=== PATIENT | female | born 1965 | race Caucasian/White ===

== ENCOUNTER 2019-09-21 15:25 | Inpatient (IN) | payer MEDICAID ==
[~2019-09-21] VITALS: Ht 157.5 cm; Wt 92.9 kg
[2019-09-21] MEDS ORDERED: normal saline 1000ML IV soln IVB ONE (15:45)
[2019-09-21 15:51] LABS: BASOPHILS # (AUTO) 0.1 X10'3 (0-0.2); BASOPHILS % (AUTO) 1.1 % (0-1); EOSINOPHILS # (AUTO) 0.1 X10'3 (0-0.9); EOSINOPHILS % (AUTO) 1.5 % (0-6); HEMATOCRIT 41.3 % (35.0-45.0); HEMOGLOBIN 13.3 g/dl (12.0-16.0); LYMPHOCYTES # (AUTO) 1.7 X10'3 (1.1-4.8); LYMPHOCYTES % (AUTO) 17.8 % (21-51); MEAN CORPUSCULAR HGB CONC 32.3 g/dL (33.0-36.5); MEAN CORPUSCULAR VOLUME 83.7 FL (78-98); MEAN PLATELET VOLUME 8.8 FL (7.4-10.4); MONOCYTES # (AUTO) 0.9 X10'3 (0-0.9); MONOCYTES % (AUTO) 9.8 % (2-12); NEUTROPHILS # (AUTO) 6.7 X10'3 (1.8-7.7); NEUTROPHILS % (AUTO) 69.8 % (42-75); PLATELET COUNT 202 X10'3 (140-440); RED BLOOD COUNT 4.93 X10'6 (4.20-5.60); RED CELL DISTRIBUTION WIDTH 20.2 % (11.5-14.5); WHITE BLOOD COUNT 9.6 X10'3 (4.5-11.0)
[2019-09-21 16:08] LABS: D-DIMER 1.24 MG/L FEU (0-0.50)
[2019-09-21 16:20] LABS: ANISOCYTOSIS 3+; ELLIPTOCYTES FEW; LARGE PLATELETS FEW; PLATELET ESTIMATE NORMAL
[2019-09-21 16:37] LABS: ALANINE AMINOTRANSFERASE 23 U/L (12-78); ALBUMIN 2.7 G/DL (3.4-5.0); ALBUMIN/GLOBULIN RATIO 0.6 (1.1-1.5); ALKALINE PHOSPHATASE 152 IU/L (46-116); ANION GAP 6 (8-16); ASPARTATE AMINO TRANSFERASE 30 U/L (10-37); BILIRUBIN,TOTAL 2.2 MG/DL (0.1-1.0); BLOOD UREA NITROGEN 15 MG/DL (7-18); BUN/CREATININE RATIO 16.9 (6.6-38.0); CALCIUM 8.4 MG/DL (8.5-10.1); CHLORIDE 102 MMOL/L (99-107); CREATININE 0.89 MG/DL (0.40-0.90); ETHANOL < 0.010 GM/DL (0.0-0.010); GLUCOSE 138 MG/DL (70-104); POTASSIUM 3.3 MMOL/L (3.5-5.1); SODIUM 141 MMOL/L (135-145); TOTAL CARBON DIOXIDE 33.3 MMOL/L (24-32); TOTAL PROTEIN 7.2 G/DL (6.4-8.2); eGFR 67 ML/MIN
[2019-09-21] MEDS ORDERED: iohexol 350MG/ML 100ml bottle IV ONE (16:56)
[2019-09-21] MEDS ORDERED: potassium Cl 20 mEq SR tablet PO STA (17:34)
[2019-09-21] MEDS ORDERED: FURO-150 PO (18:04)
[2019-09-21] MEDS ORDERED: ATOR40TA71 PO (18:10)
[2019-09-21] MEDS ORDERED: ALBU8HFA PO (18:12)
--- NOTE | 2019-09-21 18:12 | NUR ---
UPDATED PATIENTS HOME MEDS, PATIENT IS COMPLAINING OF CHEAST TIGHTNESS SO REPEAT EKG IS ORDERED, WILL CONTINUE TO MONITOR
--- NOTE | 2019-09-21 18:30 | NUR ---
Spoke to Dr. Cadet after assessing the patient who has a heart rate of 150 to auscultation and discharge orders. EKG and temperature repeated.
--- NOTE | 2019-09-21 18:47 | NUR ---
Desats quickly to mid 80's w/o O2
[2019-09-21] MEDS ORDERED: ondansetron/PF 4mg/2ml inj IV PRN (19:10)
[2019-09-21] MEDS ORDERED: acetaminophen 325mg tablet PO PRN (19:10)
[2019-09-21] MEDS ORDERED: potassium Cl 20mEq in NS 1,000 ML IV SCH (19:10)
[2019-09-21] MEDS ORDERED: HYDROcodone/acetaminophen 5mg/325mg tablet PO PRN (19:10)
[2019-09-21] MEDS ORDERED: magnesium hydroxide 30ml (MOM) UD suspension PO PRN (19:10)
[2019-09-21] MEDS ORDERED: magnesium 2GM in 50ml NS 50 ML IV PRN (19:10)
[2019-09-21] MEDS ORDERED: magnesium Cl slow-release 64mg tablet PO PRN (19:10)
[2019-09-21] MEDS ORDERED: potassium Cl 20 mEq SR tablet PO PRN ×2 (19:10)
[2019-09-21] MEDS ORDERED: potassium CL 10mEq/100ml bag 100 ML IV PRN ×2 (19:10)
[2019-09-21] MEDS ORDERED: morphine 2 MG/ML inj. syringe IV PRN (19:10)
[2019-09-21] MEDS ORDERED: magnesium 4gm in 100ml NS 100 ML IV PRN (19:10)
[2019-09-21] MEDS ORDERED: mag hydrox/Alum hydrox/simeth 30ml oral suspension PO PRN (19:10)
[2019-09-21] MEDS: K and/or MAG REPLACEMENT MC SCH (20:00)
--- NOTE | 2019-09-21 20:02 | NUR ---
Call out to Dr. Harrington regarding patient's persisting heart rate in the 150s. No answer at this time. Will attempt to contact her again shortly.
[2019-09-21 20:05] LABS: CLARITY,URINE CLEAR (Clear); COLOR,URINE YELLOW (Yellow); GLUCOSE, URINE NEGATIVE (Neg); KETONES,URINE NEGATIVE (Neg); LEUKOCYTE ESTERASE ,URINE NEGATIVE (Neg); NITRITES, URINE NEGATIVE (Neg); OCCULT BLOOD,URINE NEGATIVE (Neg); PH,URINE 6.5 (4.8-8.0); PROTEIN,URINE 30 mg/dl (Neg)
[2019-09-21 20:06] LABS: HEMOGLOBIN A1C 7.5 % (4.5-6.2)
--- NOTE | 2019-09-21 20:13 | NUR ---
Dorinda ortiz in EDM - 09/21/19 at 2013 by BONITA Spoke to Dr. Harrington about patient condition. 10mg IV labetalol IV once ordered.
[2019-09-21 20:14] LABS: UA COLLECTION TYPE CLN CATCH MIDSTREAM
[2019-09-21 20:14] LABS: TROPONIN I < 0.04 NG/ML (0.0-0.05)
--- NOTE | 2019-09-21 20:14 | NUR ---
Spoke to Dr. Harrington about patient condition. 10mg IV labetalol IV once ordered.
[2019-09-21] MEDS ORDERED: labetalol 20mg/4ml (5mg/ml) syringe IV ONE (20:15)
[2019-09-21 20:16] LABS: BACTERIA,URINE FEW /HPF (Neg); RBC,URINE NONE SEEN /HPF (0-2); SQUAMOUS EPITHELIAL CELL,UR MANY /LPF (FEW); URINE AMPHETAMINE SCREEN NEGATIVE (Neg); URINE BARBITUATE SCREEN NEGATIVE (Neg); URINE BENZODIAZEPINES SCREEN NEGATIVE (Neg); URINE CANNABINOID SCREEN NEGATIVE (Neg); URINE COCAINE SCREEN NEGATIVE (Neg); URINE METHADONE SCREEN NEGATIVE (Neg); URINE OPIATE SCREEN NEGATIVE (Neg); URINE PHENCYCLIDINE SCREEN NEGATIVE (Neg); WBC,URINE 0-4 /HPF (0-4)
--- NOTE | 2019-09-21 20:44 | NUR ---
3-5 minutes after giving labetalol IV as ordered, the patient began to feel dizzy and lightheaded. He heart rate dropped rapidly from 150 into the 80s. Her oxygen was increased to 15LPM and attempted to obtain an automated blood pressure unsuccessfully. Dr. Camarena called to bedside to evaluate the patient as she seemed to be deteriorating. Attempted to obtain a manual blood pressure but was unable to hear heart tones that way either. After Dr. Collins arrival to bedside the patient slowly improved without intervention and we obtained a blood pressure of 109/70. Dr. Camarena recommends stat echo. Spoke to Dr. Harrington who agrees with the stat echo and states we can give 500mL NS bolus to help with her blood pressure.
[2019-09-21] MEDS ORDERED: normal saline 500ml IV soln 1,000 ML IV ONE (21:00)
[2019-09-21 23:21] LABS: ABG BASE EXCESS -6.7 mmol/L (-2.0-3.0); ABG HCO3 16.1 mmol/L (22.0-26.0); ABG PCO2 (T) 25.9 mmHg (35.0-45.0); ALLEN'S TEST POSITIVE; FCOHb 1.1 % (0.5-1.5); FLOW 6 L/min; FMetHb 0.2 % (0.3-1.12); FO2Hb 95.7 % (94-100); PATIENT TEMPERATURE 36.7; TOTAL HEMOGLOBIN 15.2 G/dl (12.0-16.0)
[2019-09-22] VITALS (22 sets, daily range): BP systolic 84–129; BP diastolic 61–96
--- NOTE | 2019-09-22 00:50 | NUR ---
Patient in room CICU 2013. I have received report from REEL AND REWINDER OPERATOR and had the opportunity to ask questions and assume patient care. Pt ill appearing, diaphoretic, c/o being hot. Bilateral lower extremities cornelia to purple in color. 3+ pitting edema. Pt says color is normal appearing for her legs. Her toes and fingers as well as lips and nose are dusky. SpO2 pleth not reading. Can not currently obtain temperature, reading too low. Orders to place temp shukla and start Dobutamine for Low EF.
[2019-09-22] MEDS ORDERED: insulin Lispro (HumaLOG) vial - multi-dose SQ SCH (01:30)
[2019-09-22] MEDS ORDERED: MESSAGE TO PHARMACY PO ONE (01:30)
[2019-09-22] MEDS ORDERED: dextrose ORAL solution 15 GM/59 ML bottle PO PRN ×2 (01:30)
[2019-09-22] MEDS ORDERED: dextrose 50%-water 50ml dispensing syringe IV PRN (01:30)
[2019-09-22] MEDS ORDERED: glucagon, human recombinant 1mg kit SUBCUT PRN (01:30)
[2019-09-22] MEDS ORDERED: dextrose 50%-water 50ml dispensing syringe IV ONE (01:33)
[2019-09-22] MEDS: dextrose 50%-water 50ml dispensing syringe IV PRN ×2 (01:34→01:54)
[2019-09-22] MEDS: DOBUTamine-DoBUTrex 500mg/D5W 250 ML IV SCH (01:44)
[2019-09-22 02:06] LABS: BASOPHILS # (AUTO) 0.1 X10'3 (0-0.2); BASOPHILS % (AUTO) 0.5 % (0-1); EOSINOPHILS % (AUTO) 0.1 % (0-6); HEMATOCRIT 46.6 % (35.0-45.0); LYMPHOCYTES # (AUTO) 2.1 X10'3 (1.1-4.8); LYMPHOCYTES % (AUTO) 19.6 % (21-51); MEAN CORPUSCULAR HEMOGLOBIN 27.3 PG (27.0-31.0); MEAN CORPUSCULAR HGB CONC 32.2 g/dL (33.0-36.5); MEAN CORPUSCULAR VOLUME 84.9 FL (78-98); MEAN PLATELET VOLUME 9.1 FL (7.4-10.4); MONOCYTES # (AUTO) 0.7 X10'3 (0-0.9); MONOCYTES % (AUTO) 6.7 % (2-12); NEUTROPHILS # (AUTO) 7.7 X10'3 (1.8-7.7); NEUTROPHILS % (AUTO) 73.1 % (42-75); PLATELET COUNT 107 X10'3 (140-440); RED BLOOD COUNT 5.48 X10'6 (4.20-5.60); RED CELL DISTRIBUTION WIDTH 20.5 % (11.5-14.5); WHITE BLOOD COUNT 10.5 X10'3 (4.5-11.0)
[2019-09-22 02:28] LABS: ALANINE AMINOTRANSFERASE 28 U/L (12-78); ALBUMIN 3.1 G/DL (3.4-5.0); ALBUMIN/GLOBULIN RATIO 0.6 (1.1-1.5); ALKALINE PHOSPHATASE 173 IU/L (46-116); ANION GAP 16 (8-16); ASPARTATE AMINO TRANSFERASE 50 U/L (10-37); BILIRUBIN,TOTAL 3.6 MG/DL (0.1-1.0); BLOOD UREA NITROGEN 19 MG/DL (7-18); BUN/CREATININE RATIO 13.8 (6.6-38.0); CALCIUM 8.4 MG/DL (8.5-10.1); CHLORIDE 100 MMOL/L (99-107); CHOL/HDL RATIO 8.1 (0.00-4.99); CHOLESTEROL 145 MG/DL (0-200); CREATININE 1.38 MG/DL (0.40-0.90); HDL CHOLESTEROL 18 MG/DL (35-60); LDL CHOLESTEROL 128 MG/DL (50-100); MAGNESIUM 1.8 MG/DL (1.5-2.4); SODIUM 136 MMOL/L (135-145); TOTAL CARBON DIOXIDE 20.3 MMOL/L (24-32); TOTAL PROTEIN 7.9 G/DL (6.4-8.2); TRIGLYCERIDES 121 MG/DL (20-135); TROPONIN I < 0.04 NG/ML (0.0-0.05); eGFR 40 ML/MIN
[2019-09-22 02:32] LABS: GLUCOSE 38 MG/DL (70-104); POTASSIUM 6.3 MMOL/L (3.5-5.1)
[2019-09-22 02:35] LABS: ANISOCYTOSIS 3+; ELLIPTOCYTES FEW; PLATELET ESTIMATE DECREASED; POIKILOCYTOSIS FEW
[2019-09-22 02:36] LABS: ABG BASE EXCESS -13.2 mmol/L (-2.0-3.0); ABG HCO3 11.7 mmol/L (22.0-26.0); ABG OXYGEN SATURATION 98.1 % (95-98); ABG PO2 (T) 109.4 mmHg (83-108); ALLEN'S TEST POSITIVE; FCOHb 0.6 % (0.5-1.5); FLOW 15 L/min; FMetHb 0.3 % (0.3-1.12); FO2Hb 97.2 % (94-100); PATIENT TEMPERATURE 34.6; TOTAL HEMOGLOBIN 15.3 G/dl (12.0-16.0)
[2019-09-22] MEDS: normal saline 1000ml 1,000 ML IV SCH ×2 (03:05→12:48)
[2019-09-22] MEDS ORDERED: sodium bicarbonate (8.4%) inj. 1 MEQ/ML ML IV ONE (03:10)
[2019-09-22] MEDS ORDERED: sodium polystyrene sulfonate 15gm/60ml oral suspension PO ONE (03:10)
--- NOTE | 2019-09-22 03:17 | NUR ---
0125-Labs drawn and accucheck done off blood, BG 41. D Addendum: 09/22/19 at 0319 by Christy Pérez RN D50 given and repeat BG taken 0151 BG 61, additional amp D50 given IV. Pt now complaining of being too cold instead of too hot.
--- NOTE | 2019-09-22 03:19 | NUR ---
0220-Temp Shukla placed, less than 30ml dark yellow urine out. Pt feeling very "heavy" after shukla placed. Raised her head back to sitting position, pt very anxious, color is very poor. Called for Stat, ABG to get a SpO2 reading as monitor still not picking up reading. Pt placed on Salter instead of Non Rebreather I placed her on after sitting her up again. sO2 okay at 98, pleth still reading 50s. Saravanan hugger blanket in place. BG rechecked with arterial sample 249. Antwon Platt called and is back at bedside. Critical lab results and orders being placed.
--- NOTE | 2019-09-22 03:30 | NUR ---
Dobutamine reduced to 3mcg from 5mcg per C. Lc OUTREACH DIRECTOR, HR in 140's. Pt looks much more comfortable, color is normal.
[2019-09-22 04:04] LABS: PARTIAL THROMBOPLASTIN TIME 31 SECONDS (22-32)
--- NOTE | 2019-09-22 05:08 | NUR ---
0450- Pt now normal temperature, pleth reading correctly on finger. Pt had run of Vtach then HR slowed from 150's to 110's. Dobutamine remains at 3mcg.
--- NOTE | 2019-09-22 06:41 | NUR ---
Problems reprioritized. Patient report given, questions answered & plan of care reviewed with Kehinde DAVIDSON.
--- NOTE | 2019-09-22 07:24 | NUR ---
notified Dr. Castillo pt's dobutamine gtt held; BP stable with HR in the high 150s for 30mins. Orders received.
[2019-09-22] MEDS ORDERED: diltiazem 30mg tablet PO ONE (07:25)
[2019-09-22] MEDS: enoxaparin 40mg/0.4ml syringe SUBCUT SCH (08:00)
[2019-09-22] MEDS: K and/or MAG REPLACEMENT MC SCH ×2 (08:00→19:08)
[2019-09-22] MEDS ORDERED: metoprolol tartrate 1mg/ml inj IV ONE ×2 (10:30→12:00)
--- NOTE | 2019-09-22 10:30 | NUR ---
notified Dr Castillo of pt's decreased urine output; no new orders received. aware of pt's continued HR in the 130s/140s.
[2019-09-22] MEDS: diltiazem 30mg tablet PO SCH ×3 (13:55→23:29)
[2019-09-22] MEDS ORDERED: TIOT4MIS5 INH (16:22)
--- NOTE | 2019-09-22 16:47 | NUR ---
DM consult, A1c is 7.5, patient met at bedside and given written DM education handout with verbal review and referral to outpatient DM education class on wednesday with contact information (currently on hold). Addendum: 09/22/19 at [address] Amended: Links added.
--- NOTE | 2019-09-22 18:25 | NUR ---
Patient in room CICU 2013. I have received report from STUART Anadn and had the opportunity to ask questions and assume patient care.
--- NOTE | 2019-09-22 18:35 | NUR ---
Patient report given, questions answered & plan of care reviewed with Wilma DAVIDSON.
[2019-09-22] MEDS: insulin glargine (Lantus) pen - multi-dose SQ SCH (19:06)
--- NOTE | 2019-09-22 21:09 | NUR ---
Spoke with Antwon Platt NP re: non-administration of Diltiazem secondary to BP 84/61 ( 68). No new orders. Addressed patient remains on NS at 100 ml/hr with a PO fluid restriction of 1500 ml. Order to D/C IV fluids. Antwon Platt BULL RIVETER aware of Patients decreased urine output of 20-30 ml/hr. Will continue to monitor. Patient c/o "severe anxiety" at nighttime while in the hospital. Order for 1 mg Ativan PO or IV every 6 hours PM only for anxiety.
[2019-09-22] MEDS ORDERED: LORazepam 2 mg/ml vial IV PRN (21:15)
[2019-09-22] MEDS: LORazepam 1 MG tablet PO PRN (21:58)
--- NOTE | 2019-09-22 23:00 | NUR ---
Patients SpO2 reading in the 70's - low 80's despite moving location of the oxygen probe. Patient placed on 10 lpm Salter. RT paged. ABG ordered.
[2019-09-22 23:16] LABS: ABG BASE EXCESS -2.3 mmol/L (-2.0-3.0); ABG HCO3 20.7 mmol/L (22.0-26.0); ABG OXYGEN SATURATION 98.5 % (95-98); ABG PCO2 (T) 30.8 mmHg (35.0-45.0); ABG PH (T) 7.445 (7.350-7.450); ABG PO2 (T) 123.4 mmHg (83-108); ALLEN'S TEST POSITIVE; FCOHb 0.5 % (0.5-1.5); FMetHb 0.2 % (0.3-1.12); FO2Hb 97.8 % (94-100); PATIENT TEMPERATURE 37.1; TOTAL HEMOGLOBIN 14.4 G/dl (12.0-16.0)
--- NOTE | 2019-09-22 23:24 | NUR ---
Antwon Platt NP called, heart rate 145. Order to give 0200 dose of Cardizem now.
[2019-09-23] VITALS (25 sets, daily range): BP systolic 92–152; BP diastolic 61–110
[2019-09-23 03:45] LABS: ALANINE AMINOTRANSFERASE 72 U/L (12-78); ALBUMIN 2.7 G/DL (3.4-5.0); ALBUMIN/GLOBULIN RATIO 0.6 (1.1-1.5); ALKALINE PHOSPHATASE 137 IU/L (46-116); ANION GAP 10 (8-16); ASPARTATE AMINO TRANSFERASE 110 U/L (10-37); BILIRUBIN,TOTAL 3.2 MG/DL (0.1-1.0); BLOOD UREA NITROGEN 27 MG/DL (7-18); BUN/CREATININE RATIO 22.3 (6.6-38.0); CHLORIDE 101 MMOL/L (99-107); CREATININE 1.21 MG/DL (0.40-0.90); GLUCOSE 75 MG/DL (70-104); MAGNESIUM 1.9 MG/DL (1.5-2.4); POTASSIUM 4.3 MMOL/L (3.5-5.1); SODIUM 135 MMOL/L (135-145); TOTAL CARBON DIOXIDE 24.1 MMOL/L (24-32); TOTAL PROTEIN 6.9 G/DL (6.4-8.2); eGFR 47 ML/MIN
--- NOTE | 2019-09-23 03:45 | NUR ---
Patient awoke agitated demanding she "sit in a chair". Patient educated on severity of illness and advised that sitting in a chair would not be possible at this time. Patient continued to demand that she sit in a chair, kicking off blankets and pillows. Patient demanded that SCD's be removed. primer waterproofing machine operator notified and came to bedside. Education given on illness and plan of care. Patient non- compliant with instructions. Patient moving legs to edge of bed. Allowed patient to sit on edge of bed with RN in attendance. Patient tolerated position change for 1 minute, increase work of breathing, decreased oxygen saturation to the 70's. Patient assisted back to bed. Patient continues to refuse SCD's. C/O anxiety, Ativan administered per order.
[2019-09-23] MEDS: LORazepam 1 MG tablet PO PRN ×2 (03:58→22:46)
[2019-09-23 05:26] LABS: BASOPHILS # (AUTO) 0.1 X10'3 (0-0.2); BASOPHILS % (AUTO) 0.8 % (0-1); EOSINOPHILS # (AUTO) 0.1 X10'3 (0-0.9); EOSINOPHILS % (AUTO) 0.7 % (0-6); HEMATOCRIT 45.9 % (35.0-45.0); HEMOGLOBIN 14.6 g/dl (12.0-16.0); LYMPHOCYTES # (AUTO) 2.8 X10'3 (1.1-4.8); LYMPHOCYTES % (AUTO) 21.3 % (21-51); MEAN CORPUSCULAR HEMOGLOBIN 26.9 PG (27.0-31.0); MEAN CORPUSCULAR HGB CONC 31.8 g/dL (33.0-36.5); MEAN CORPUSCULAR VOLUME 84.4 FL (78-98); MEAN PLATELET VOLUME 9.1 FL (7.4-10.4); MONOCYTES # (AUTO) 1.6 X10'3 (0-0.9); MONOCYTES % (AUTO) 12.1 % (2-12); NEUTROPHILS # (AUTO) 8.6 X10'3 (1.8-7.7); NEUTROPHILS % (AUTO) 65.1 % (42-75); PLATELET COUNT 141 X10'3 (140-440); RED BLOOD COUNT 5.44 X10'6 (4.20-5.60); RED CELL DISTRIBUTION WIDTH 20.9 % (11.5-14.5); WHITE BLOOD COUNT 13.2 X10'3 (4.5-11.0)
--- NOTE | 2019-09-23 06:17 | NUR ---
Problems reprioritized. Patient report given, questions answered & plan of care reviewed with STUART Galarza.
[2019-09-23] MEDS: enoxaparin 40mg/0.4ml syringe SUBCUT SCH (07:40)
[2019-09-23] MEDS: diltiazem 30mg tablet PO SCH ×3 (07:40→20:34)
[2019-09-23] MEDS: K and/or MAG REPLACEMENT MC SCH ×2 (08:00→20:00)
--- NOTE | 2019-09-23 18:20 | NUR ---
Patient in room CICU 2013. I have received report from Geovanni DAVIDSON and had the opportunity to ask questions and assume patient care.
[2019-09-23] MEDS: insulin glargine (Lantus) pen - multi-dose SQ SCH (20:33)
[2019-09-24] VITALS (24 sets, daily range): BP systolic 101–151; BP diastolic 74–105
[2019-09-24] MEDS: DOBUTamine-DoBUTrex 500mg/D5W 250 ML IV SCH (01:10)
[2019-09-24] MEDS: diltiazem 30mg tablet PO SCH ×4 (02:13→20:04)
--- NOTE | 2019-09-24 06:47 | NUR ---
Problems reprioritized. Patient report given, questions answered & plan of care reviewed with Heidi DAVIDSON.
--- NOTE | 2019-09-24 07:25 | NUR ---
Patient in room CICU 2013. I have received report from STUART Delgado and had the opportunity to ask questions and assume patient care.
[2019-09-24] MEDS: enoxaparin 40mg/0.4ml syringe SUBCUT SCH (08:20)
[2019-09-24] MEDS ORDERED: albuterol 2.5 MG/3 ML nebule NEB PRN (10:20)
[2019-09-24] MEDS: ipratropium 0.5 MG/2.5ML nebule IH SCH ×3 (10:30→20:05)
[2019-09-24] MEDS: K and/or MAG REPLACEMENT MC SCH ×2 (11:00→18:59)
[2019-09-24 11:44] LABS: BASOPHILS # (AUTO) 0.1 X10'3 (0-0.2); HEMOGLOBIN 13.9 g/dl (12.0-16.0); MONOCYTES # (AUTO) 1.1 X10'3 (0-0.9)
[2019-09-24 11:46] LABS: BASOPHILS % (AUTO) 1.3 % (0-1); EOSINOPHILS # (AUTO) 0.3 X10'3 (0-0.9); EOSINOPHILS % (AUTO) 2.7 % (0-6); HEMATOCRIT 43.3 % (35.0-45.0); LYMPHOCYTES # (AUTO) 1.7 X10'3 (1.1-4.8); MEAN CORPUSCULAR HEMOGLOBIN 26.9 PG (27.0-31.0); MEAN PLATELET VOLUME 9.1 FL (7.4-10.4); MONOCYTES % (AUTO) 10.2 % (2-12); NEUTROPHILS # (AUTO) 7.2 X10'3 (1.8-7.7); NEUTROPHILS % (AUTO) 69.8 % (42-75); PLATELET COUNT 168 X10'3 (140-440); RED BLOOD COUNT 5.16 X10'6 (4.20-5.60); RED CELL DISTRIBUTION WIDTH 20.4 % (11.5-14.5); WHITE BLOOD COUNT 10.4 X10'3 (4.5-11.0)
[2019-09-24 12:02] LABS: ALANINE AMINOTRANSFERASE 100 U/L (12-78); ALBUMIN 2.7 G/DL (3.4-5.0); ALBUMIN/GLOBULIN RATIO 0.6 (1.1-1.5); ALKALINE PHOSPHATASE 142 IU/L (46-116); ANION GAP 4 (8-16); ASPARTATE AMINO TRANSFERASE 100 U/L (10-37); BILIRUBIN,TOTAL 2.5 MG/DL (0.1-1.0); BLOOD UREA NITROGEN 27 MG/DL (7-18); BUN/CREATININE RATIO 25.5 (6.6-38.0); CALCIUM 8.6 MG/DL (8.5-10.1); CHLORIDE 101 MMOL/L (99-107); CREATININE 1.06 MG/DL (0.40-0.90); GLUCOSE 132 MG/DL (70-104); MAGNESIUM 2.1 MG/DL (1.5-2.4); SODIUM 135 MMOL/L (135-145); TOTAL CARBON DIOXIDE 30.4 MMOL/L (24-32); eGFR 54 ML/MIN
[2019-09-24 12:07] LABS: POTASSIUM 3.7 MMOL/L (3.5-5.1)
[2019-09-24 12:27] LABS: ANISOCYTOSIS 3+; ELLIPTOCYTES FEW; PLATELET ESTIMATE NORMAL; POLYCHROMASIA 1+; TARGET CELLS FEW
[2019-09-24 12:28] LABS: BURR CELLS FEW
--- NOTE | 2019-09-24 18:28 | NUR ---
Problems reprioritized. Patient report given, questions answered & plan of care reviewed with STUART Turner.
--- NOTE | 2019-09-24 18:36 | NUR ---
Patient in room CICU 2013. I have received report from Clarisa DAVIDSON and had the opportunity to ask questions and assume patient care.
[2019-09-24] MEDS: atorvastatin 20mg tablet PO SCH (20:04)
[2019-09-24] MEDS: insulin glargine (Lantus) pen - multi-dose SQ SCH (21:00)
[2019-09-24] MEDS: LORazepam 1 MG tablet PO PRN (21:07)
[2019-09-25] VITALS (16 sets, daily range): BP systolic 97–138; BP diastolic 61–98
[2019-09-25] MEDS: guaiFENesin 200 MG/10 ML oral syrup UD cup PO PRN ×2 (02:09→16:15)
[2019-09-25] MEDS: diltiazem 30mg tablet PO SCH ×4 (02:09→20:59)
[2019-09-25] MEDS: ipratropium 0.5 MG/2.5ML nebule IH SCH ×4 (03:00→20:18)
--- NOTE | 2019-09-25 06:22 | NUR ---
Problems reprioritized. Patient report given, questions answered & plan of care reviewed with Clarisa DAVIDSON.
--- NOTE | 2019-09-25 06:29 | NUR ---
Patient in room CICU 2013. I have received report from STUART RINALDI and had the opportunity to ask questions and assume patient care.
[2019-09-25] MEDS: K and/or MAG REPLACEMENT MC SCH ×2 (08:00→19:24)
[2019-09-25 08:27] LABS: BASOPHILS # (AUTO) 0.1 X10'3 (0-0.2); EOSINOPHILS # (AUTO) 0.2 X10'3 (0-0.9); EOSINOPHILS % (AUTO) 2.1 % (0-6); HEMATOCRIT 42.3 % (35.0-45.0); HEMOGLOBIN 13.6 g/dl (12.0-16.0); LYMPHOCYTES # (AUTO) 1.8 X10'3 (1.1-4.8); LYMPHOCYTES % (AUTO) 17.2 % (21-51); MEAN CORPUSCULAR HEMOGLOBIN 26.8 PG (27.0-31.0); MEAN CORPUSCULAR HGB CONC 32.3 g/dL (33.0-36.5); MONOCYTES % (AUTO) 9.9 % (2-12); NEUTROPHILS # (AUTO) 7.2 X10'3 (1.8-7.7); NEUTROPHILS % (AUTO) 69.8 % (42-75); PLATELET COUNT 173 X10'3 (140-440); RED CELL DISTRIBUTION WIDTH 20.6 % (11.5-14.5); WHITE BLOOD COUNT 10.3 X10'3 (4.5-11.0)
[2019-09-25] MEDS: enoxaparin 40mg/0.4ml syringe SUBCUT SCH (08:39)
[2019-09-25 08:41] LABS: ALANINE AMINOTRANSFERASE 95 U/L (12-78); ALBUMIN 2.8 G/DL (3.4-5.0); ALBUMIN/GLOBULIN RATIO 0.7 (1.1-1.5); ALKALINE PHOSPHATASE 157 IU/L (46-116); ANION GAP 7 (8-16); ASPARTATE AMINO TRANSFERASE 101 U/L (10-37); BLOOD UREA NITROGEN 21 MG/DL (7-18); BUN/CREATININE RATIO 41.2 (6.6-38.0); CALCIUM 8.6 MG/DL (8.5-10.1); CHLORIDE 101 MMOL/L (99-107); CREATININE 0.51 MG/DL (0.40-0.90); GLUCOSE 76 MG/DL (70-104); MAGNESIUM 2.1 MG/DL (1.5-2.4); POTASSIUM 4.4 MMOL/L (3.5-5.1); SODIUM 135 MMOL/L (135-145); TOTAL CARBON DIOXIDE 26.7 MMOL/L (24-32); TOTAL PROTEIN 7.1 G/DL (6.4-8.2); eGFR > 90 ML/MIN
[2019-09-25 09:35] LABS: ANISOCYTOSIS 3+; HYPOCHROMASIA 1+; PLATELET ESTIMATE NORMAL
[2019-09-25 09:36] LABS: POLYCHROMASIA FEW
--- NOTE | 2019-09-25 14:45 | NUR ---
PT TRANSFERRED WITH ALL BELONGING TO pcu,ROOM 3024B IN CARE OF SAME RN
--- NOTE | 2019-09-25 18:42 | NUR ---
Problems reprioritized. Patient report given, questions answered & plan of care reviewed with joyce ayon.
--- NOTE | 2019-09-25 18:46 | NUR ---
Patient in room PCU 3024. I have received report from Clarisa DAVIDSON and had the opportunity to ask questions and assume patient care.
--- NOTE | 2019-09-25 19:24 | NUR ---
Problems reprioritized. Patient report given, questions answered & plan of care reviewed with Lisa DAVIDSON.
[2019-09-25] MEDS: insulin glargine (Lantus) pen - multi-dose SQ SCH (21:00)
[2019-09-25] MEDS: atorvastatin 20mg tablet PO SCH (21:00)
[2019-09-25] MEDS: LORazepam 1 MG tablet PO PRN (21:28)
[2019-09-26] VITALS (8 sets, daily range): BP systolic 90–148; BP diastolic 56–95
[2019-09-26] MEDS: guaiFENesin 200 MG/10 ML oral syrup UD cup PO PRN ×2 (02:07→22:40)
[2019-09-26] MEDS: diltiazem 30mg tablet PO SCH ×2 (02:07→08:00)
[2019-09-26] MEDS: ipratropium 0.5 MG/2.5ML nebule IH SCH ×4 (02:21→20:38)
--- NOTE | 2019-09-26 05:03 | NUR ---
REDD Salgado notified r/t pt increased anxiety, pt order stated ativan 1 mg PO/IV for PM shift. Killian Caldwell ativan dose now at 0500. will monitor for sedation. 2. no IV access. pt refuse IV despite multiple eduction regarding IV access.
[2019-09-26] MEDS: LORazepam 1 MG tablet PO PRN ×2 (05:08→22:40)
--- NOTE | 2019-09-26 06:37 | NUR ---
Problems reprioritized. Patient report given, questions answered & plan of care reviewed with Rossana DAVIDSON.
[2019-09-26 06:39] LABS: BASOPHILS # (AUTO) 0.1 X10'3 (0-0.2); BASOPHILS % (AUTO) 0.7 % (0-1); EOSINOPHILS # (AUTO) 0.2 X10'3 (0-0.9); HEMATOCRIT 42.3 % (35.0-45.0); HEMOGLOBIN 13.7 g/dl (12.0-16.0); LYMPHOCYTES # (AUTO) 1.8 X10'3 (1.1-4.8); LYMPHOCYTES % (AUTO) 18.5 % (21-51); MEAN CORPUSCULAR HGB CONC 32.3 g/dL (33.0-36.5); MEAN CORPUSCULAR VOLUME 83.5 FL (78-98); MEAN PLATELET VOLUME 9.3 FL (7.4-10.4); MONOCYTES # (AUTO) 1.2 X10'3 (0-0.9); MONOCYTES % (AUTO) 11.9 % (2-12); NEUTROPHILS # (AUTO) 6.5 X10'3 (1.8-7.7); NEUTROPHILS % (AUTO) 66.9 % (42-75); PLATELET COUNT 204 X10'3 (140-440); RED BLOOD COUNT 5.07 X10'6 (4.20-5.60); RED CELL DISTRIBUTION WIDTH 20.8 % (11.5-14.5); WHITE BLOOD COUNT 9.8 X10'3 (4.5-11.0)
[2019-09-26 06:54] LABS: ALANINE AMINOTRANSFERASE 78 U/L (12-78); ALBUMIN 2.7 G/DL (3.4-5.0); ALBUMIN/GLOBULIN RATIO 0.6 (1.1-1.5); ALKALINE PHOSPHATASE 163 IU/L (46-116); ANION GAP 7 (8-16); ASPARTATE AMINO TRANSFERASE 67 U/L (10-37); BILIRUBIN,TOTAL 2.6 MG/DL (0.1-1.0); BLOOD UREA NITROGEN 18 MG/DL (7-18); BUN/CREATININE RATIO 18.4 (6.6-38.0); CALCIUM 8.3 MG/DL (8.5-10.1); CHLORIDE 101 MMOL/L (99-107); CREATININE 0.98 MG/DL (0.40-0.90); GLUCOSE 83 MG/DL (70-104); POTASSIUM 3.7 MMOL/L (3.5-5.1); SODIUM 137 MMOL/L (135-145); TOTAL CARBON DIOXIDE 29.3 MMOL/L (24-32); eGFR 60 ML/MIN
--- NOTE | 2019-09-26 06:55 | NUR ---
Patient in room PCU 3022G. I have received report from Lisa DAVIDSON and had the opportunity to ask questions and assume patient care. Patient laying in bed, eyes closed, no signs of distress, will continue to monitor.
[2019-09-26] MEDS: enoxaparin 40mg/0.4ml syringe SUBCUT SCH (08:00)
[2019-09-26] MEDS: K and/or MAG REPLACEMENT MC SCH ×2 (08:00→20:41)
[2019-09-26 09:15] LABS: ANISOCYTOSIS 3+; PLATELET ESTIMATE NORMAL
[2019-09-26] MEDS: losartan 50mg tablet PO SCH (10:35)
--- NOTE | 2019-09-26 12:25 | NUR ---
Initial: Pt admit s/p seizure, tachycardia currently controlled, and metabolic acidosis possibly r/t seizure per MD. PO 50-75% avg heart healthy diet w/ PO continuing to improve this admit. Pt currently meeting needs given adjusted IBW w/ morbid obesity BMI 38. LBM 09/24 moderate but also first BM in 4 days. Will continue to monitor for additional protein needs pending further PO hx. Rec: 1. continue heart healthy diet 2. monitor for additional protein needs pending further PO hx 3. bowel care as needed 4. wt per rx Addendum: 09/26/19 at [address] Amended: Links added.
--- NOTE | 2019-09-26 18:26 | NUR ---
Problems reprioritized. Patient report given, questions answered & plan of care reviewed with Enrrique DAVIDSON.
[2019-09-26] MEDS: carVEDilol 3.125mg tablet PO SCH (20:28)
[2019-09-26] MEDS: atorvastatin 20mg tablet PO SCH (20:28)
[2019-09-26] MEDS: insulin glargine (Lantus) pen - multi-dose SQ SCH (20:41)
[2019-09-27] VITALS (9 sets, daily range): BP systolic 77–124; BP diastolic 56–93
[2019-09-27] MEDS: ipratropium 0.5 MG/2.5ML nebule IH SCH ×4 (01:45→20:13)
[2019-09-27 06:26] LABS: EOSINOPHILS # (AUTO) 0.2 X10'3 (0-0.9); MEAN PLATELET VOLUME 9.3 FL (7.4-10.4); RED BLOOD COUNT 4.96 X10'6 (4.20-5.60)
[2019-09-27 06:29] LABS: BASOPHILS # (AUTO) 0.1 X10'3 (0-0.2); BASOPHILS % (AUTO) 0.6 % (0-1); HEMATOCRIT 40.9 % (35.0-45.0); HEMOGLOBIN 13.3 g/dl (12.0-16.0); LYMPHOCYTES # (AUTO) 1.4 X10'3 (1.1-4.8); LYMPHOCYTES % (AUTO) 16.6 % (21-51); MEAN CORPUSCULAR HEMOGLOBIN 26.8 PG (27.0-31.0); MEAN CORPUSCULAR HGB CONC 32.5 g/dL (33.0-36.5); MEAN CORPUSCULAR VOLUME 82.5 FL (78-98); MONOCYTES % (AUTO) 12.4 % (2-12); NEUTROPHILS # (AUTO) 5.7 X10'3 (1.8-7.7); NEUTROPHILS % (AUTO) 68.4 % (42-75); PLATELET COUNT 208 X10'3 (140-440); WHITE BLOOD COUNT 8.3 X10'3 (4.5-11.0)
--- NOTE | 2019-09-27 06:32 | NUR ---
Patient in room U 3028Q. I have received report from Enrrique DAVIDSON and had the opportunity to ask questions and assume patient care.
[2019-09-27 06:33] LABS: ALANINE AMINOTRANSFERASE 56 U/L (12-78); ALBUMIN 2.4 G/DL (3.4-5.0); ALBUMIN/GLOBULIN RATIO 0.6 (1.1-1.5); ALKALINE PHOSPHATASE 148 IU/L (46-116); ANION GAP 6 (8-16); ASPARTATE AMINO TRANSFERASE 49 U/L (10-37); BILIRUBIN,TOTAL 2.3 MG/DL (0.1-1.0); BLOOD UREA NITROGEN 20 MG/DL (7-18); BUN/CREATININE RATIO 20.6 (6.6-38.0); CALCIUM 8.4 MG/DL (8.5-10.1); CHLORIDE 104 MMOL/L (99-107); CREATININE 0.97 MG/DL (0.40-0.90); GLUCOSE 79 MG/DL (70-104); MAGNESIUM 2.1 MG/DL (1.5-2.4); POTASSIUM 4.2 MMOL/L (3.5-5.1); SODIUM 140 MMOL/L (135-145); TOTAL CARBON DIOXIDE 29.6 MMOL/L (24-32); TOTAL PROTEIN 6.4 G/DL (6.4-8.2); eGFR 60 ML/MIN
[2019-09-27 07:00] LABS: ANISOCYTOSIS 3+; PLATELET ESTIMATE NORMAL
[2019-09-27 07:02] LABS: SCHISTOCYTES FEW
[2019-09-27] MEDS: K and/or MAG REPLACEMENT MC SCH ×2 (08:00→20:00)
[2019-09-27] MEDS: losartan 50mg tablet PO SCH (08:00)
[2019-09-27] MEDS: carVEDilol 3.125mg tablet PO SCH ×2 (08:46→21:07)
[2019-09-27] MEDS: enoxaparin 40mg/0.4ml syringe SUBCUT SCH (08:46)
--- NOTE | 2019-09-27 08:48 | NUR ---
Patient refused AM dose of Losartan, states that "I can't take that medication, it doesn't work for me". When asked why, patient states "I don't know, I think it made me sick, they gave me something else with an L". Patient also states "Why can't we just leave the medications alone, I was fine before I came in". Educated patient on new medications and recommendations from cardiology and the doctor. Patient became upset, refused losartan but stated she would take the Coreg. Educated again on medications and plan of care, patient was passive and slightly agitated.
[2019-09-27] MEDS ORDERED: carVEDilol 3.125mg tablet PO ONE (09:00)
--- NOTE | 2019-09-27 10:30 | NUR ---
PAGER ID: [phone] MESSAGE: Rossana newberry [phone]. RE Yuli Brantley [id number]. Unable to give extra coreg dose, patient's blood pressure is 88/67 prior to medication. Will hold dose of coreg. Thanks!
--- NOTE | 2019-09-27 11:00 | NUR ---
Patient refused orthostatic VS, attempted to educate patient however patient rolled over and went back to sleep, would not answer any further questions.
--- NOTE | 2019-09-27 11:14 | NUR ---
PAGER ID: [phone] MESSAGE: Rossana newberry [phone]. RE Yuli Brantley [id number]. Patient's blood pressure is 77/56, patient sleepy and drowsy. Please advise? Thanks!
[2019-09-27] MEDS ORDERED: normal saline 1000ml 1,000 ML IV SCH (11:20)
--- NOTE | 2019-09-27 13:24 | NUR ---
PAGER ID: [phone] MESSAGE: Rossana newberry [phone]. RE Yuli Brantley 3024B. Pt blood pressure 92/66 before IV fluids. However, patient does not have IV and is refusing IV placement at this time.
--- NOTE | 2019-09-27 13:48 | NUR ---
Patient's blood pressure is 92/[address] Serrano had ordered IV fluids to run 125mL/hr x 1 liter. However, patient does not have IV access, and is refusing all attempts at IV access. Patient educated about need for hydration and monitoring blood pressure. She states "what is the point" and rolled over and would not answer any more questions. Dr. Serrano notified and is aware, okay to not have IV access, instructions to continue monitoring patient and will observe BP.
--- NOTE | 2019-09-27 18:20 | NUR ---
Problems reprioritized. Patient report given, questions answered & plan of care reviewed with Pat RN. Patient laying in bed, eyes closed, no signs of distress, patient stable at time of shift change.
--- NOTE | 2019-09-27 19:00 | NUR ---
pt refuses orthostatic VS's to be checked Addendum: 09/28/19 at 0133 by Lizz Mckee RN Amended: Links added.
--- NOTE | 2019-09-27 19:00 | NUR ---
informed by sameer ordonez RN that aware no PIV in place; pt refuses restart Addendum: 09/28/19 at 0133 by Lizz Mckee RN Amended: Links added.
[2019-09-27] MEDS ORDERED: carvedilol 6.25mg tablet PO SCH (20:00)
[2019-09-27] MEDS: atorvastatin 20mg tablet PO SCH (21:07)
[2019-09-27] MEDS: insulin glargine (Lantus) pen - multi-dose SQ SCH (21:52)
[2019-09-27] MEDS: guaiFENesin 200 MG/10 ML oral syrup UD cup PO PRN (22:28)
[2019-09-27] MEDS: LORazepam 1 MG tablet PO PRN (22:28)
[2019-09-28 03:00] VITALS: BP 130/102
[2019-09-28] MEDS: ipratropium 0.5 MG/2.5ML nebule IH SCH ×3 (03:34→08:21)
[2019-09-28 05:52] LABS: BASOPHILS # (AUTO) 0.1 X10'3 (0-0.2); BASOPHILS % (AUTO) 0.7 % (0-1); EOSINOPHILS # (AUTO) 0.3 X10'3 (0-0.9); HEMATOCRIT 42.6 % (35.0-45.0); HEMOGLOBIN 13.6 g/dl (12.0-16.0); LYMPHOCYTES # (AUTO) 1.8 X10'3 (1.1-4.8); LYMPHOCYTES % (AUTO) 19.3 % (21-51); MEAN CORPUSCULAR HEMOGLOBIN 26.5 PG (27.0-31.0); MEAN CORPUSCULAR HGB CONC 31.8 g/dL (33.0-36.5); MEAN CORPUSCULAR VOLUME 83.4 FL (78-98); MEAN PLATELET VOLUME 9.4 FL (7.4-10.4); MONOCYTES % (AUTO) 10.8 % (2-12); NEUTROPHILS # (AUTO) 6.2 X10'3 (1.8-7.7); NEUTROPHILS % (AUTO) 66.2 % (42-75); PLATELET COUNT 236 X10'3 (140-440); RED BLOOD COUNT 5.11 X10'6 (4.20-5.60); RED CELL DISTRIBUTION WIDTH 20.4 % (11.5-14.5); WHITE BLOOD COUNT 9.3 X10'3 (4.5-11.0)
[2019-09-28 06:10] LABS: ALANINE AMINOTRANSFERASE 57 U/L (12-78); ALBUMIN 2.7 G/DL (3.4-5.0); ALBUMIN/GLOBULIN RATIO 0.6 (1.1-1.5); ALKALINE PHOSPHATASE 167 IU/L (46-116); ANION GAP 5 (8-16); ASPARTATE AMINO TRANSFERASE 45 U/L (10-37); BLOOD UREA NITROGEN 19 MG/DL (7-18); BUN/CREATININE RATIO 19.6 (6.6-38.0); CHLORIDE 103 MMOL/L (99-107); CREATININE 0.97 MG/DL (0.40-0.90); GLUCOSE 94 MG/DL (70-104); POTASSIUM 4.5 MMOL/L (3.5-5.1); SODIUM 139 MMOL/L (135-145); TOTAL CARBON DIOXIDE 30.6 MMOL/L (24-32); eGFR 60 ML/MIN
[2019-09-28] MEDS: carVEDilol 3.125mg tablet PO SCH (07:47)
[2019-09-28] MEDS: enoxaparin 40mg/0.4ml syringe SUBCUT SCH (07:48)
--- NOTE | 2019-09-28 07:52 | NUR ---
Pt am blood glucose is 69, notified primary rn, gave patient glucose shot per md orders, rechecked blood glucose 15mins after and is 106, patient is asymptomatic.
[2019-09-28] MEDS: K and/or MAG REPLACEMENT MC SCH (07:55)
[2019-09-28] MEDS ORDERED: losartan 25mg tablet PO SCH (08:00)
[2019-09-28 08:01] LABS: PLATELET ESTIMATE NORMAL
[2019-09-28 08:02] LABS: ANISOCYTOSIS 3+; LARGE PLATELETS FEW
[2019-09-28 08:03] LABS: ELLIPTOCYTES FEW
[2019-09-28 08:04] LABS: HYPOCHROMASIA 1+
[2019-09-28] MEDS ORDERED: LOSA25TA41 PO (10:41)
[2019-09-28] MEDS ORDERED: COR3.125T PO (10:41)
[2019-09-28] MEDS ORDERED: METF500T PO (10:41)
--- NOTE | 2019-09-28 11:18 | NUR ---
Called [facility] to set up f/u appt with Dr. Youngblood. Per history tutor, Kellie, patient is not in their system and they will need a referral from the discharging physician. Will page Zach ANGLIN to make aware.
--- NOTE | 2019-09-28 11:20 | NUR ---
PAGER ID: [phone] MESSAGE: [phone], Yuli Brantley Called cardiovascular center to set up f/u appt with Stuarti. Per secretary receptionist, pt. is not in their records. They will need a referral from you to see the patient. Ervin [phone]
--- NOTE | 2019-09-28 11:28 | NUR ---
Called [facility] on [address] to call in new prescriptions. Received by pharmacist Barbie. [phone]
--- NOTE | 2019-09-28 11:48 | NUR ---
Faxed H&P and Facesheet to Kellie with cardiovascular.
--- NOTE | 2019-09-28 11:59 | NUR ---
Called [facility] [phone]. Left voicemail and call back number. Trying to set up follow up appt.
--- NOTE | 2019-09-28 12:39 | NUR ---
Per MD orders, patient stable for discharge home. New prescriptions called in to pharmacy of preference [facility] on [address] Discharge packet reviewed with patient at bedside and all belongings sent with patient. Faxed H&P and Facesheet and progress note to Kellie with cardiovascular center to set up patient follow up appt. They will call to set up appt with patient. Tele monitoring discontinued, no PIV. All belongings sent with patient. Transferred to private vehicle accompanied by resource nurse.
--- NOTE | 2019-09-28 13:08 | NUR ---
patient brought down to lobby with hospital staff via wheelchair to private vehicle for discharge to home. tele monitor removed, piv dc'ed, patient has all belongings.
== END 2019-09-28 12:48 | disposition home or self-care (01) | DRG 133 ==
LOC: ER 15:26 → ED HOLD 19:10 → CICU 2S 09-22 00:50 → PCU 3S 09-25 14:46
PROVIDERS: ADMIT Internal Medicine; ATTEND Internal Medicine
DX: J96.20 Acute and chronic respiratory failure, unspecified whether with hypoxia or hypercapnia (principal); K72.00 Acute and subacute hepatic failure without coma; R57.0 Cardiogenic shock; I24.9 Acute ischemic heart disease, unspecified; E87.2 Acidosis; I11.0 Hypertensive heart disease with heart failure; I95.9 Hypotension, unspecified; I50.9 Heart failure, unspecified; I27.29 Other secondary pulmonary hypertension; E66.01 Morbid (severe) obesity due to excess calories; E87.5 Hyperkalemia; E11.9 Type 2 diabetes mellitus without complications; J96.10 Chronic respiratory failure, unspecified whether with hypoxia or hypercapnia; E78.00 Pure hypercholesterolemia, unspecified; F17.210 Nicotine dependence, cigarettes, uncomplicated; G47.00 Insomnia, unspecified; I27.81 Cor pulmonale (chronic); I42.9 Cardiomyopathy, unspecified; J44.9 Chronic obstructive pulmonary disease, unspecified; R56.9 Unspecified convulsions; E86.0 Dehydration; Z53.20 Procedure and treatment not carried out because of patient's decision for unspecified reasons; Z79.899 Other long term (current) drug therapy; Z68.37 Body mass index [BMI] 37.0-37.9, adult
CPT/HCPCS: 36415; 36600; 70450; 71045; 71270; 80053; 80061; 80305; 80320; 81001; 82803; 82948; 83036; 83605; 83735; 83880; 84132; 84145; 84443; 84484; 85018; 85025; 85379; 85610; 85730; 87040; 87081; 93005; 93306; 94640; 94760; 96360; 96361; 97110; 97116; 97162; 97530; 99285; G0378; J1250; J1650; J1815; J3480; J3490; J7030; J7040; Q9967